=== PATIENT | female | born 1945 | race Caucasian/White ===

== ENCOUNTER 2016-10-19 11:02 | Emergency (ER) | payer OTHER ==
[~2016-10-19] VITALS: Ht 152.4 cm; Wt 81.6 kg
[2016-10-19 12:11] VITALS: BP 118/64
== END 2016-10-19 12:11 | disposition home or self-care (01) ==
LOC: ED 11:02
DX: S22.32XA Fracture of one rib, left side, initial encounter for closed fracture (principal); G91.9 Hydrocephalus, unspecified; Z79.899 Other long term (current) drug therapy; W22.03XA Walked into furniture, initial encounter; Y93.89 Activity, other specified; Y92.89 Other specified places as the place of occurrence of the external cause; Y99.8 Other external cause status

== ENCOUNTER 2017-02-08 12:17 | Emergency (ER) | payer OTHER ==
[2017-02-08 18:23] VITALS: BP 119/72
== END 2017-02-08 20:09 | disposition home or self-care (01) ==
LOC: ED 12:17
DX: S20.222A Contusion of left back wall of thorax, initial encounter (principal); S20.221A Contusion of right back wall of thorax, initial encounter; S30.0XXA Contusion of lower back and pelvis, initial encounter; S00.01XA Abrasion of scalp, initial encounter; F03.90 Unspecified dementia, unspecified severity, without behavioral disturbance, psychotic disturbance, mood disturbance, and anxiety; W17.89XA Other fall from one level to another, initial encounter; Y93.89 Activity, other specified; Y99.8 Other external cause status; Y92.89 Other specified places as the place of occurrence of the external cause

== ENCOUNTER 2017-11-04 03:45 | Inpatient (IN) | payer OTHER ==
[~2017-11-04] VITALS: Ht 154.9 cm; Wt 88.5 kg
[2017-11-04 04:36] LABS: BASOPHIL % 0.8 % (0-2); PLATELET COUNT 172 x10^3mcL (130-400)
[2017-11-04 04:43] LABS: CALCIUM 8.5 mg/dL (8.5-10.1); CARBON DIOXIDE 26.7 mmol/L (21-32); CHLORIDE SERUM 107 mmol/L (98-107); CREATININE SERUM 0.7 mg/dL (0.6-1.0); GLUCOSE SERUM 109 mg/dL (74-106); POTASSIUM SERUM 4.2 mmol/L (3.5-5.1); SODIUM SERUM 143 mmol/L (136-145)
[2017-11-04 04:47] LABS: RED CELL DISTRIBUTION WIDTH 14.7 % (11.5-14.5)
[2017-11-04 04:50] LABS: ALKALINE PHOSPHATASE 67 U/L (46-116); ALT/SGPT 24 U/L (14-59); AST/SGOT 21 U/L (15-37); TOTAL PROTEIN, SERUM 6.8 g/dL (6.4-8.2)
[2017-11-04 04:51] LABS: ALBUMIN 3.3 g/dL (3.4-5.0)
[2017-11-04] MEDS ORDERED: NUEDEXTA1 CAP PO (06:13)
[2017-11-04 10:30] VITALS: BP 156/69
[2017-11-04 12:00] LABS: CHOLESTEROL/HDL RATIO 3.8; MAGNESIUM 2.3 mg/dL (1.8-2.4); PHOSPHOROUS 3.5 mg/dL (2.5-4.9)
[2017-11-04 12:07] LABS: T3 TOTAL 1.02 ng/mL
[2017-11-04 12:13] LABS: FREE T4 0.95 ng/dL (0.76-1.46); FREE THYROXINE INDEX 2.4 ug/dL (1.4-4.5); T4(THYROXINE) 6.9 ug/dL (4.7-13.3)
[2017-11-04 13:42] VITALS: BP 136/82
[2017-11-04 14:38] LABS: microscopic required? NO
[2017-11-04 14:43] LABS: urine erythrocyte NEGATIVE (NEGATIVE)
[2017-11-04 14:57] LABS: AMPHETAMINE QUAL UR NONE DETECTED (NEG <=1000)
[2017-11-04 16:52] VITALS: BP 117/61
[2017-11-04 21:29] VITALS: BP 124/52
[2017-11-05 06:13] VITALS: BP 119/56
[2017-11-05 06:24] LABS: BASOPHIL % 0.6 % (0-2); PLATELET COUNT 167 x10^3mcL (130-400)
[2017-11-05 06:34] LABS: CALCIUM 8.4 mg/dL (8.5-10.1); CARBON DIOXIDE 28.4 mmol/L (21-32); CHLORIDE SERUM 108 mmol/L (98-107); CREATININE SERUM 0.6 mg/dL (0.6-1.0); GLUCOSE SERUM 98 mg/dL (74-106); POTASSIUM SERUM 3.8 mmol/L (3.5-5.1); SODIUM SERUM 144 mmol/L (136-145)
[2017-11-05 07:06] LABS: RED CELL DISTRIBUTION WIDTH 14.8 % (11.5-14.5)
[2017-11-05 14:48] VITALS: BP 134/64
[2017-11-05 17:57] VITALS: BP 119/59
[2017-11-05 22:15] VITALS: BP 123/51
[2017-11-06 06:20] LABS: BASOPHIL % 1.2 % (0-2); PLATELET COUNT 162 x10^3mcL (130-400)
[2017-11-06 06:23] VITALS: BP 125/65
[2017-11-06 06:43] LABS: CALCIUM 8.7 mg/dL (8.5-10.1); CARBON DIOXIDE 27.1 mmol/L (21-32); CHLORIDE SERUM 107 mmol/L (98-107); CREATININE SERUM 0.6 mg/dL (0.6-1.0); GLUCOSE SERUM 94 mg/dL (74-106); SODIUM SERUM 142 mmol/L (136-145)
[2017-11-06 06:45] LABS: RED CELL DISTRIBUTION WIDTH 14.8 % (11.5-14.5)
[2017-11-06 09:42] VITALS: BP 91/51
[2017-11-06 13:43] VITALS: BP 100/49
[2017-11-06 13:50] VITALS: BP 100/49
== END 2017-11-06 14:26 | DRG 391 ==
LOC: ED 03:45 → DU 06:01
PROVIDERS: Emergency Medicine; Family Medicine
DX: K21.9 Gastro-esophageal reflux disease without esophagitis (principal); G93.41 Metabolic encephalopathy; N17.0 Acute kidney failure with tubular necrosis; E44.0 Moderate protein-calorie malnutrition; R07.89 Other chest pain; M94.0 Chondrocostal junction syndrome [Tietze]; G30.9 Alzheimer's disease, unspecified; F02.80 Dementia in other diseases classified elsewhere, unspecified severity, without behavioral disturbance, psychotic disturbance, mood disturbance, and anxiety; S70.02XA Contusion of left hip, initial encounter; F32.9 Major depressive disorder, single episode, unspecified; Z90.49 Acquired absence of other specified parts of digestive tract; Z68.36 Body mass index [BMI] 36.0-36.9, adult; Z98.2 Presence of cerebrospinal fluid drainage device; Z91.81 History of falling; W19.XXXA Unspecified fall, initial encounter; Y92.009 Unspecified place in unspecified non-institutional (private) residence as the place of occurrence of the external cause
CPT/HCPCS: 83880; 84439; 85378; 97110-GP; 97116-GP; 97530-GP; J7030; Q0092

== ENCOUNTER 2019-09-10 10:47 | Emergency (ER) | payer OTHER ==
[~2019-09-10] VITALS: Ht 157.5 cm; Wt 84.4 kg
[~2019-09-10 10:47] MED LIST: NUEDEXTA1 CAP PO
[2019-09-10 11:00] VITALS: BP 122/56; Ht 157.5 cm; Wt 84.4 kg
== END 2019-09-10 13:21 | disposition home or self-care (01) ==
LOC: ED 10:47
DX: S62.647A Nondisplaced fracture of proximal phalanx of left little finger, initial encounter for closed fracture (principal); S81.002A Unspecified open wound, left knee, initial encounter; S20.212A Contusion of left front wall of thorax, initial encounter; F03.90 Unspecified dementia, unspecified severity, without behavioral disturbance, psychotic disturbance, mood disturbance, and anxiety; Z89.432 Acquired absence of left foot; W18.39XA Other fall on same level, initial encounter; Y93.01 Activity, walking, marching and hiking; Y92.89 Other specified places as the place of occurrence of the external cause; Y99.8 Other external cause status